=== PATIENT | male | born 1950 | race Two or more races ===

== ENCOUNTER 2025-02-27 07:00 | Day surgery (SDC) | payer OTHER ==
[2025-02-15 13:09] VITALS: BP 123/71
[~2025-02-27] VITALS: Ht 165.1 cm; Wt 57.6 kg
[~2025-02-27 07:00] MED LIST: BUPIVACAINE HCL/MPF 0.5% 30ML VIAL ONE; CEFTRIAXONE SODIUM 2,000 MG VIAL ONE; COZAAR25 MG PO; METRONIDAZOLE/SODIUM CHLORIDE 500 MG/100 ML PIGGYBACK IV ONE
[2025-02-27] MEDS ORDERED: ENOXAPARIN SODIUM 40 MG/0.4 ML SYRINGE SUBCUTANEO ONE (07:49)
[2025-02-27] MEDS ORDERED: NEURONTIN300 MG PO (10:01)
[2025-02-27] MEDS ORDERED: CELEBREX200MG PO ×2 (10:01→22:25)
[2025-02-27] MEDS ORDERED: POLY119PG PO (10:01)
[2025-02-27] MEDS ORDERED: PERCOCET 5-3251 EACH PO (10:01)
[2025-02-27] MEDS ORDERED: MIRALAX17 GM PO (22:25)
[2025-02-27] MEDS ORDERED: ENDOCET 5-3251 EACH PO (22:25)
[2025-02-27] MEDS ORDERED: HORIZANT300 MG PO (22:25)
== END 2025-02-27 18:25 | disposition home or self-care (01) ==
LOC: CIR.AMB 07:00
PROVIDERS: ATTEND Surgery
DX: K40.90 Unilateral inguinal hernia, without obstruction or gangrene, not specified as recurrent (principal)
CPT/HCPCS: 49650; C1781

== ENCOUNTER 2025-02-27 22:16 | Emergency (ER) | payer OTHER ==
[~2025-02-27] VITALS: Ht 165.1 cm; Wt 56.2 kg
[~2025-02-27 22:16] MED LIST changes: -BUPIVACAINE HCL/MPF 0.5% 30ML VIAL ONE; -CEFTRIAXONE SODIUM 2,000 MG VIAL ONE; +CELEBREX200MG PO; -METRONIDAZOLE/SODIUM CHLORIDE 500 MG/100 ML PIGGYBACK IV ONE; +NEURONTIN300 MG PO; +PERCOCET 5-3251 EACH PO; +POLY119PG PO
[2025-02-27] MEDS ORDERED: CELEBREX200MG PO (22:25)
[2025-02-27] MEDS ORDERED: ENDOCET 5-3251 EACH PO (22:25)
[2025-02-27] MEDS ORDERED: HORIZANT300 MG PO (22:25)
[2025-02-27] MEDS ORDERED: MIRALAX17 GM PO (22:25)
[2025-02-27 22:27] VITALS: BP 119/72; O2SAT 97
== END 2025-02-28 00:49 ==
LOC: ER
DX: R33.8 Other retention of urine (principal); N39.0 Urinary tract infection, site not specified; E11.9 Type 2 diabetes mellitus without complications; K45.8 Other specified abdominal hernia without obstruction or gangrene